=== PATIENT | male | born 1965 | race Caucasian/White ===

== ENCOUNTER 2016-12-03 22:46 | Emergency (ER) | payer OTHER ==
[~2016-12-03] VITALS: Ht 180.3 cm; Wt 83.9 kg
[~2016-12-03 22:46] MED LIST: CIPRO500 MG PO; IBUPROFEN800 MG ORAL; NORCO 5-325 TA1 EACH ORAL
[2016-12-03] MEDS ORDERED: Morphine Sulfate 4mg/ml Inj IVP ONE (23:45)
[2016-12-04 00:22] LABS: BASOPHILS % (AUTO) 1.3 % (0.0-2.0); EOSINOPHILS % (AUTO) 3.6 % (0.0-3.0); LYMPHOCYTES % (AUTO) 30.3 % (20.0-45.0); MEAN CORPUSCULAR HEMOGLOBIN 32.4 PG (27.0-31.0); MEAN CORPUSCULAR HGB CONC 34.4 G/DL (32.0-36.0); MEAN CORPUSCULAR VOLUME 94 FL (80-99); MEAN PLATELET VOLUME 6.6 FL (6.5-10.1); NEUTROPHILS % (AUTO) 56.7 % (45.0-75.0); PLATELET COUNT 187 K/UL (150-450); RED BLOOD COUNT 4.72 M/UL (4.70-6.10); RED CELL DISTRIBUTION WIDTH 12.3 % (11.6-14.8); WHITE BLOOD COUNT 8.4 K/UL (4.8-10.8)
[2016-12-04 00:32] LABS: APPEARANCE,URINE SLIGHTLY CLOUDY; KETONES,URINE NEGATIVE (NEGATIVE); LEUKOCYTE ESTERASE ,URINE NEGATIVE (NEGATIVE); NITRITE,URINE NEGATIVE (NEGATIVE); PH,URINE 7 (4.5-8.0); PROTEIN,URINE NEGATIVE (NEGATIVE); UROBILINOGEN,URINE 1 MG/DL (0.0-1.0)
[2016-12-04 00:36] LABS: ANION GAP 12 (5-15); CALCIUM 9.4 mg/dL (8.6-10.2); CARBON DIOXIDE 26 mEQ/L (20-30); CHLORIDE 104 mEQ/L (98-107); GLOMERULAR FILTRATION RATE > 60 mL/min (>60); HEMOLYSIS 12; POTASSIUM 3.8 mEQ/L (3.4-4.9); SODIUM 142 mEQ/L (135-145)
[2016-12-04 00:45] VITALS: BP 169/115
[2016-12-04 00:59] LABS: RBC,URINE 0 /HPF (0 - 0)
[2016-12-04 01:00] LABS: AMORPHOUS SEDIMENT,UR MODERATE /LPF; BACTERIA,URINE OCCASIONAL /HPF; SQUAMOUS EPITHELIAL CELL,UR OCCASIONAL /LPF (NONE/OCC); WBC,URINE 0-2 /HPF (0 - 0)
[2016-12-04 01:17] VITALS: BP 142/103
[2016-12-04] MEDS ORDERED: HYDROCODON-ACE1 EA15 ORAL (01:24)
[2016-12-04] MEDS ORDERED: NORVASC10 MG ORAL (01:24)
--- NOTE | 2016-12-04 01:24 | Emergency Room Report ---
History of Present Illness General Chief Complaint: Hypertension Source: Patient, Family Member Present Illness HPI Is a 51-year-old male with no past history. He has a strong family history of hypertension. He presents with right-sided headache for the last 3 days. Throbbing in nature. No fever or chills. No nausea no vomiting. He went to urgent care 2 days ago and was told that it may be secondary to a dental infection. It was irrigated to see if he has any infection. He was placed on antibiotics for possible dental infection. He was told that his blood pressure was elevated. It was systolic in the 150-160/110 diastolic. He went to the dentist today and had x-rays and was tolerating was fine. He is here because still having headache. He took some migraine [id number] medication without help some. No focal deficit. No chest pain. No hematuria. Pain is 8/ 10. Allergies: Coded Allergies: No Known Allergies (Unverified , 09/06/14) Patient History Past Medical History: see triage record, old chart reviewed Past Surgical History: other Pertinent Family History: HTN Social History: Denies: drug use Immunizations: other Reviewed Nursing Documentation: PMH: Agreed, PSxH: Agreed Review of Systems Eye: Denies: blurred vision, eye pain ENT: Denies: ear pain, nose congestion, throat swelling Respiratory: Denies: cough, shortness of breath Cardiovascular: Denies: chest pain, palpitations Gastrointestinal: Denies: abdominal pain, diarrhea, nausea, vomiting Musculoskeletal: Denies: back pain, joint pain Skin: Denies: rash Neurological: Reports: headache, Denies: numbness Endocrine: Denies: increased thirst, increased urine Hematologic/Lymphatic: Denies: easy bruising All Other Systems: negative except mentioned in HPI Physical Exam Vital Signs Date Time Temp Pulse Resp B/P Pulse Ox O2 Delivery O2 Flow Rate FiO2 12/03/16 22:58 98.1 83 16 152/110 96 Room Air vitals with htn [id number] EP Interpretation: reviewed, normal General Appearance: well appearing, no apparent distress, alert Head: normocephalic, atraumatic Eyes: bilateral eye EOMI, bilateral eye PERRL ENT: hearing grossly normal, normal pharynx Neck: full range of motion, supple, no meningismus Respiratory: chest non-tender, lungs clear, normal breath sounds Cardiovascular #1: regular rate, rhythm, no murmur Gastrointestinal: normal bowel sounds, non tender, no mass, no organomegaly, no bruit, non-distended Musculoskeletal: back normal, gait/station normal, normal range of motion Psychiatric: mood/affect normal Skin: warm/dry Medical Decision Making Diagnostic Impression: Primary Impression: Hypertension Qualified Codes: I10 - Essential (primary) hypertension Additional Impression: Headache Qualified Codes: R51 - Headache ER Course Patient presents with headache. No evidence of meningitis, bleed, or neoplastic process. Headache was gradual in process. No family history of subarachnoid bleed. I see no evidence of subdural or subarachnoid hemorrhage. He felt better now. Blood pressure remained high. Headache may be secondary to blood pressure elevation. We'll go ahead and treat with antihypertensive medication. Lab Results Impression labs normal Rhythm Strip Diag. Results EP Interpretation: yes Rate: 65 Rhythm: NSR, no PVC's, no ectopy CT/MRI/US Diagnostic Results CT/MRI/US Diagnostic Results : Imaging Test Ordered: ct head Impression neg per radiologist Last Vital Signs Date Time Temp Pulse Resp B/P Pulse Ox O2 Delivery O2 Flow Rate FiO2 12/04/16 01:17 98.1 67 14 142/103 97 Room Air Status: improved Disposition: HOME, SELF-CARE Condition: Stable Scripts Amlodipine Besylate (Norvasc) 10 Mg Tablet 10 MG ORAL DAILY, #30 TAB Prov: YURIDIA CRAIG M.D. 12/04/16 Hydrocodone/Acetaminophen 5-325* (HYDROCODONE/ACETAMINOPHEN 5-325*) 1 Each Tablet 1 TAB ORAL Q6H Y for For Pain, #20 TAB 0 Refills Prov: YURIDIA CRAIG M.D. 12/04/16 Referrals: [facility],REFERRING (PCP) Patient Instructions: High Blood Pressure (Hypertension) Additional Instructions: Follow up with your doctor in 7 days for recheck. Return if worse. YURIDIA CRAIG M.D. December 04, 2016 01:24
[2016-12-04 01:30] VITALS: BP 142/103
--- NOTE | 2016-12-04 10:38 | Diagnostic Imaging Report ---
Indication: Headache Technique: Contiguous 5 mm thick transaxial imaging of the head obtained in a Siemens Sensation [address] scanner. Soft tissue and bone windows generated. Total Dose length Product (DLP): [address] Dose Index Volume (CTDIvol): 70.38 mGy Comparison: none Findings: The size and configuration of the cortical sulci, basal cisterns, and ventricles are within normal limits for age. There is no mass effect, midline shift, or edema identified. There is no evidence of acute hemorrhage or abnormal intra-axial or extra-axial fluid collections. The bones and soft tissues are unremarkable. Impression: No mass effect, edema or acute bleed. The CT scanner at [facility] is accredited by the [employer] and the scans are performed using dose optimization techniques as appropriate to a performed exam including Automatic Exposure control.
== END 2016-12-04 01:30 | disposition home or self-care (01) ==
LOC: EMR 23:17
DX: I10 Essential (primary) hypertension (principal); R51 Headache; Z82.49 Family history of ischemic heart disease and other diseases of the circulatory system
CPT/HCPCS: 36415; 70450; 80048; 81001; 85025; 96374; 96375; 99284; J2270; J2405